=== PATIENT | male | born 1950 | race Caucasian/White ===

== ENCOUNTER 2016-12-06 16:16 | Inpatient (IN) | payer BC ==
[~2016-12-06] VITALS: Ht 182.9 cm; Wt 102.8 kg
[2016-12-06 16:51] LABS: EOSINOPHIL (%) 1.6 % (0-5); EOSINOPHIL COUNT 0.1 K/uL (0-0.3); IMMATURE GRANULOCYTE (%) 0.1 % (0.0-0.7); INSTRUMENT ABS NEUTROPHIL CT 4.1 K/uL; LYMPHOCYTE COUNT 2.2 K/uL (1.0-2.8); MCH 33.2 PG (29.0-34.0); MCHC 34.6 G/DL (30.0-36.0); MCV 95.8 FL (86-99); MEAN PLAT.VOLUME 11.1 uM^3 (9.0-12.4); MONOCYTE COUNT 0.3 K/uL (0-0.8); NEUTROPHIL (%) 60.3 % (45-76); NEUTROPHIL COUNT 4.1 K/uL (1.8-6.4); PLATELET COUNT 216 K/uL (156-360); RBC DIS.WIDTH-CV 11.9 % (11.8-14.6); RBC DIS.WIDTH-SD 41.8 % (39-53); RED BLOOD COUNT 4.28 M/uL (4.00-5.50); WHITE BLOOD COUNT 6.8 K/uL (4.1-10.2)
[2016-12-06 16:53] LABS: INTER. NORMALIZED RATIO 1.1; PROTHROMBIN TIME 11.7 SEC (10.2-12.9)
[2016-12-06 16:54] LABS: CHLORIDE 108 mEq/L (99-109); POTASSIUM 3.8 mEq/L (3.7-5.4); SODIUM 142 mEq/L (136-147)
[2016-12-06 16:55] LABS: MAGNESIUM 2.3 mg/dL (1.3-2.7)
[2016-12-06 16:56] LABS: GLUCOSE 153 mg/dL (70-99); PTT 33.6 SEC (25-37)
[2016-12-06 16:58] LABS: ANION GAP 13 MEQ/L (2-14); TOTAL BILIRUBIN 0.4 mg/dL (0.0-1.0)
[2016-12-06 17:00] LABS: ALKALINE PHOSPHATASE 68 IU/L (3-129); GFR ESTIMATE (CALCULATED) > 59 mL/min/
[2016-12-06 17:01] LABS: UREA NITROGEN (BUN) 17 mg/dL (9-23)
[2016-12-06 17:03] LABS: CREATINE KINASE 95 IU/L (1-294); TOTAL CK 95 IU/L (1-294)
[2016-12-06 17:05] LABS: TROP-I INTERPRETATION NEGATIVE; TROPONIN-I < 0.01 ng/mL (0.0-0.30)
[2016-12-06 17:10] LABS: CK-MB 1.8 ng/mL (0.0-4.9)
[2016-12-06 19:00] VITALS: BP 129/90
[2016-12-06 19:11] VITALS: BP 137/82
[2016-12-06 20:00] VITALS: BP 144/105
[2016-12-06 20:51] LABS: METH RESISTANT S AUREUS PCR NEGATIVE (NEGATIVE); PROBE CHECK PASS; SPECIMEN PROCESSING CONTROL PASS
[2016-12-06 21:00] VITALS: BP 138/89
[2016-12-06 22:00] VITALS: BP 123/83
[2016-12-06 23:00] VITALS: BP 138/98
[2016-12-07] VITALS (17 sets, daily range): BP systolic 105–143; BP diastolic 62–97
[2016-12-07 01:04] LABS: TOTAL CK 193 IU/L (1-294)
[2016-12-07 01:07] LABS: TROP-I INTERPRETATION POSITIVE
[2016-12-07 01:17] LABS: CREATINE KINASE 193 IU/L (1-294)
[2016-12-07 01:17] LABS: TROPONIN-I 6.22 ng/mL (0.0-0.30)
[2016-12-07 06:05] LABS: EOSINOPHIL (%) 2.6 % (0-5); EOSINOPHIL COUNT 0.2 K/uL (0-0.3); HEMATOCRIT 39.4 % (38.0-50.0); IMMATURE GRANULOCYTE (%) 0.3 % (0.0-0.7); INSTRUMENT ABS NEUTROPHIL CT 4.2 K/uL; LYMPHOCYTE COUNT 1.7 K/uL (1.0-2.8); MCH 33.5 PG (29.0-34.0); MCV 98.5 FL (86-99); MONOCYTE (%) 5.6 % (3-12); MONOCYTE COUNT 0.4 K/uL (0-0.8); NEUTROPHIL (%) 65.1 % (45-76); NEUTROPHIL COUNT 4.2 K/uL (1.8-6.4); PLATELET COUNT 209 K/uL (156-360); RBC DIS.WIDTH-SD 43.8 % (39-53); WHITE BLOOD COUNT 6.4 K/uL (4.1-10.2)
[2016-12-07 06:27] LABS: TROP-I INTERPRETATION POSITIVE
[2016-12-07 06:29] LABS: ANION GAP 6 MEQ/L (2-14); CHLORIDE 107 MEQ/L (99-109); CREATINE KINASE 167 IU/L (1-294); GFR ESTIMATE (CALCULATED) > 59 mL/min/; HDL CHOLESTEROL 33 MG/DL (Desirable>=40); LDL CHOLESTEROL 128 mg/dL (Desirable<100); NON-HDL CHOLESTEROL 145 mg/dL (Desirable<160); SAMPLE HEMOLYSIS CHECK 0; SAMPLE ICTERIC CHECK 0; SAMPLE LIPEMIA CHECK 0; SODIUM 141 MEQ/L (136-147); TOTAL CHOLESTEROL 178 mg/dL (Desirable<200); TOTAL CK 167 IU/L (1-294); TRIGLYCERIDES 85 MG/DL (Normal: <150); UREA NITROGEN (BUN) 14 mg/dL (9-23)
[2016-12-07 06:31] LABS: GLUCOSE 93 mg/dL (70-99); POTASSIUM 4.6 MEQ/L (3.7-5.4)
[2016-12-07 07:09] LABS: CK-MB 23.3 ng/mL (0.0-4.9)
[2016-12-07 07:43] LABS: Estimated Average Glucose 117 mg/dL (70-123); HEMOGLOBIN A1c (GLYCOHEMOGLOB) 5.7 % HGB (Below 5.7)
[2016-12-07] MEDS ORDERED: ADDERALL10 MG PO (09:51)
[2016-12-07] MEDS ORDERED: CRESTOR5 MG PO (09:53)
[2016-12-07] MEDS ORDERED: ASPIR 8181 M1 PO (09:54)
[2016-12-07 13:06] LABS: CREATINE KINASE 118 IU/L (1-294); TOTAL CK 118 IU/L (1-294); TROP-I INTERPRETATION POSITIVE; TROPONIN-I 2.71 ng/mL (0.0-0.30)
[2016-12-07 13:56] LABS: CK-MB 16.7 ng/mL (0.0-4.9)
[2016-12-07] MEDS ORDERED: LISINOPRIL5 MG PO (17:22)
[2016-12-07] MEDS ORDERED: LOPRESSOR25 MG PO (17:22)
[2016-12-07] MEDS ORDERED: BRILINTA90 MG PO (17:22)
== END 2016-12-07 18:21 | disposition home or self-care (01) | DRG 250 ==
LOC: EME 16:16 → EDOF 17:12 → 4WEST 17:12 → ENRESERV 17:13 → 4WEST 17:21
PROVIDERS: Emergency Medicine; Internal Medicine Cardiovascular Disease
DX: T82.855A Stenosis of coronary artery stent, initial encounter (principal); I21.4 Non-ST elevation (NSTEMI) myocardial infarction; I25.110 Atherosclerotic heart disease of native coronary artery with unstable angina pectoris; Y83.1 Surgical operation with implant of artificial internal device as the cause of abnormal reaction of the patient, or of later complication, without mention of misadventure at the time of the procedure; E78.5 Hyperlipidemia, unspecified; I10 Essential (primary) hypertension; Z87.891 Personal history of nicotine dependence; I25.2 Old myocardial infarction; Z79.82 Long term (current) use of aspirin; Z91.14 Patient's other noncompliance with medication regimen; Z79.02 Long term (current) use of antithrombotics/antiplatelets
CPT/HCPCS: 71010; 80048; 80053; 80061; 82550; 82550 91; 82553; 83036; 83735; 84484; 85025; 85347; 85610; 85730; 87641; 93005; 99281; 99285; C1725; C1769; C1887; J0461; J1644; J2250; J2405; J3010